=== PATIENT | male | born 1970 | race Caucasian/White ===

== ENCOUNTER 2018-01-18 16:20 | Emergency (ER) | payer OTHER, BC ==
[~2018-01-18] VITALS: Ht 172.7 cm; Wt 83.7 kg
[2018-01-18 16:37] VITALS: TEMP 37.3; Ht 172.7 cm; Wt 83.7 kg
[2018-01-18] MEDS ORDERED: OXYCODONE/ACETAMINOPHEN 5-325 TAB PO STA (16:43)
[2018-01-18] MEDS ORDERED: IBUPROFEN 200 MG TAB PO STA (16:43)
[2018-01-18] MEDS ORDERED: LIDOCAINE 1% BUFFERED INJ 5 ML VIAL INFIL ONE (16:45)
[2018-01-18] MEDS ORDERED: AMOXICILLIN/CLAVULANATE TAB 875 MG TAB PO ONE (16:45)
--- NOTE | 2018-01-18 17:06 | DIAGNOSTIC IMAGING REPORT ---
R TIBIA/FIBULA 2 VIEWS ROUTINE CLINICAL HISTORY: dog bit to mid lower leg by pitbull COMPARISON: None FINDINGS: No acute fracture of the right tibia or fibula is identified. There are multiple locules of gas at the level of the mid shafts of the right tibia and fibula. There is anterior right lower leg soft tissue swelling shown on lateral projection. No unexpected radiopaque foreign bodies identified. IMPRESSION: 1. No acute fracture of the right tibia or fibula. 2. Soft tissue swelling and multiple locules of gas at the level of the mid shaft of the right tibia. Correlation with timing of injury is recommended. If recent dog bite, the gas is due to the puncture wound. Electronically signed by: Parveen Velez M.D. 01/18/2018 5:05 PM Dictated Date/Time: 01/18/2018 5:02 PM
[2018-01-18] MEDS ORDERED: PERCOCET HOME PACK PO ONE (18:45)
[2018-01-18] MEDS ORDERED: AMOX875T PO (18:51)
[2018-01-18] MEDS ORDERED: OXYC-57 PO (18:51)
--- NOTE | 2018-01-18 18:55 | EMERGENCY ROOM VISIT NOTE ---
History First contact with patient: 16:33 Chief Complaint: BITE Stated Complaint: DOG BITE TO LEG History of Present Illness The patient is a 47 year old male who presents to the Emergency Room by ambulance with complaints of a dog bite to his right leg that occurred at work at approximately 230 today. The patient is complaining of severe pain in the area. His tetanus shot is up-to-date. The patient was delivering food to a resident's. The resident's dog attacked the patient. The dog is reportedly up- to-date on vaccines. Police were notified. Review of Systems 10 system review performed and negative unless noted in HPI or below Past Medical/Surgical History Otherwise healthy Social History Smoking Status: Never Smoker Housing Status: lives with family Occupation Status: employed Current/Historical Medications Scheduled Amoxicillin & Pot Clavulanate (Augmentin 875-125 mg), 1 TAB PO BID Scheduled PRN Oxycodone/Acetaminophen 5MG/325MG (Percocet 5MG/325MG), 1 TAB PO Q4H PRN for Pain Physical Exam Vital Signs Date Time Temp Pulse Resp B/P (MAP) Pulse Ox O2 Delivery O2 Flow Rate FiO2 01/18/18 19:43 86 18 144/92 96 01/18/18 18:35 80 16 151/87 98 Room Air 01/18/18 16:37 37.3 90 20 157/90 97 Room Air Physical Exam GENERAL: 47-year-old male, anxious in appearance,, in no acute distress, nondiaphoretic, well-developed well-nourished. SKIN: The skin was without rashes, erythema, edema, or bruising. There is no tenting of the skin. Capillary reflex less than 2 seconds. HEAD: Normocephalic atraumatic. EYES: . Conjunctivae without injection, sclerae without icterus. Extraocular movements intact. MOUTH: Mucous membranes NECK: Supple without nuchal rigidity. Trachea midline. No JVD. ABDOMEN: .Soft, nontender MUSCULOSKELETAL: RLE: There are multiple lacerations noted to the right mid lower extremity. Laceration a over the anterior portion of the jeffries is approximately 3 cm in length. The wound is gaping. There is no foreign material in the wound. It appears clean. There is mild oozing of blood. No significant structures such as bone or deep structures such as muscle were noted. Laceration be over the lateral aspect of the right lower extremity is approximately 2 cm in length, gaping, through the dermis without any foreign material or active bleeding. Laceration C over the lateral/posterior aspect of the right calf was approximately 4 cm, gaping with oozing of blood. Again, no deep structures such as vessels or bone noted. No foreign material in the wound. It appears clean. The patient has pain with dorsiflexion, however it is intact. Full plantar flexion. DP pulse +2. PT pulse +2. Capillary refill in the toes is less than 2 seconds. Total laceration length requiring closure is 9 cm NEURO: Patient was alert and oriented to person place and time. Normal sensation to touch. No focal neurological deficits. Medical Decision & Procedures ER Provider Diagnostic Interpretation: Right tib/fib xray IMPRESSION: 1. No acute fracture of the right tibia or fibula. 2. Soft tissue swelling and multiple locules of gas at the level of the mid shaft of the right tibia. Correlation with timing of injury is recommended. If recent dog bite, the gas is due to the puncture wound. Electronically signed by: Parveen Velez M.D. 01/18/2018 5:05 PM Dictated Date/Time: 01/18/2018 5:02 PM Medications Administered Medications (Trade) Dose Ordered Sig/Jennifer Route Start Time Stop Time Status Last Admin Dose Admin Amoxicillin/ Clavulanate Potassium (Augmentin Tab) 875 mg NOW ONCE PO 01/18/18 16:45 01/18/18 16:48 DC 01/18/18 17:09 875 MG Oxycodone/ Acetaminophen (Percocet 5-325mg Tab) 1 tab NOW STAT PO 01/18/18 16:43 01/18/18 16:48 DC 01/18/18 17:10 1 TAB Ibuprofen (Advil Tab) 800 mg NOW STAT PO 01/18/18 16:43 01/18/18 16:48 DC 01/18/18 17:09 800 MG Oxycodone/ Acetaminophen (Percocet 5/ 325MG Home Pack) 1 homepack UD ONCE PO 01/18/18 18:45 01/18/18 18:46 DC 01/18/18 18:45 1 HOMEPACK Procedure The physician nutrition services assistant student repaired the lacerations under my direct supervision. Verbal consent was obtained to perform the procedure. Using sterile technique the wound was cleaned with Betadine. The area was sterilely draped. 10 ml of 1 % buffered lidocaine was used to anesthetize the multiple lacerations. Once the patient was anesthetized, the wound was copiously irrigated under pressure with 2 L of normal saline. Laceration a was repaired using 3, simple interrupted Ethilon sutures with the wound edges being closely approximated. Laceration b was repaired in a similar manner using 2 simple interrupted sutures. Laceration C was repaired in a similar manner using 4 simple interrupted Ethilon sutures. The patient tolerated the procedure well. He was given a bandage. ED Course The patient was seen and examined he was medicated with Percocet and ibuprofen. He was also given a dose of Augmentin. Imaging was performed and reviewed The patient was reassessed and more comfortable Lacerations were repaired by the physician nutrition services assistant student under my direct supervision The patient was instructed on the use of crutches He was given a home pack of Percocet Discharge instructions were reviewed, and he was discharged in good condition Medical Decision Differential diagnosis: Dog bite, wound infection, open fracture, tendon or muscular injury, blood loss This patient is a 47-year-old male that presents to the emergency department immediately after sustaining a dog bite at work. On exam, he had multiple lacerations-3 required closure. Please see my procedure note. There are no signs of fracture. Patient did have significant pain with dorsiflexion, however this was intact. This is likely due to the laceration over the anterior tibialis muscle. The patient will be covered with a lengthy course of antibiotics due to risk of infection. He was given crutches and pain medication. He will follow-up with his primary care physician in 24-48 hours for a recheck. He will return with any worsening symptoms. This chart was completed in part utilizing [employer] Voice Recognition software. Attempts were made to minimize the grammatical errors, random word insertions, pronoun errors and incomplete sentences. Any formal questions or concerns about the content, text or information contained within the body of this dictation should be directly addressed to the provider for clarification. Impression Primary Impression: Dog bite Departure Information Dispostion Home / Self-Care Condition GOOD Prescriptions Oxycodone/Acetaminophen 5MG/325MG (PERCOCET 5MG/325MG) Tab 1 TAB PO Q4H Y for Pain, #15 TAB For Initial Treatment Prov: Meche Moses PA-C 01/18/18 Amoxicillin & Pot Clavulanate (Augmentin 875-125 mg) 1 Tab Tab 1 TAB PO BID for 10 Days, #20 TAB Prov: Meche Moses PA-C 01/18/18 Patient Instructions ED Bite Dog, My [facility] Additional Instructions You have been evaluated in the emergency department for a dog bite. This was repaired with sutures. X-rays did not show any signs of fracture. Please use crutches. Minimal weightbearing while this is still painful. Elevate the leg as much as possible over the next 48 hours. Please apply ice for 20 minute intervals over the next 48 hours. Ibuprofen 600 mg every 6 hours Percocet 1-2 tabs every 4 hours for severe pain. Do not drink alcohol or drive while taking this medication. This may be taken with ibuprofen, but avoid Tylenol. Please take the ENTIRE course of Augmentin. Please take this medication with food. I also recommend eating yogurt daily with this medication. Please follow-up with your primary care physician within the next 24-48 hours for a recheck as this bite is at high risk for infection. Do not hesitate to return to the emergency department sooner with any new, worsening or concerning symptoms; especially, increased pain, redness, swelling or fever It was a pleasure participating in your care today Work Instructions Return To Work: 2 days
[2018-01-18 19:43] VITALS: BP 144/92; PULSE 86; O2SAT 96
== END 2018-01-18 19:47 | disposition home or self-care (01) ==
LOC: EDBD 16:20 → C.EDD 16:23
DX: S81.851A Open bite, right lower leg, initial encounter (principal); W54.0XXA Bitten by dog, initial encounter; Y99.0 Civilian activity done for income or pay